=== PATIENT | female | born 1960 | race Caucasian/White ===

== ENCOUNTER → 2017-05-21 | Outpatient (CLI) | payer BC ==
[2017-05-21 19:45] LABS: Vitamin D 25 Hydroxy 41.4 ng/mL (30.0-100.0)
[2017-05-21 19:59] LABS: Rheumatoid Factor <4 IU/mL (0-15)
[2017-05-21 20:21] LABS: RNP <0.2 AI
== END | disposition home or self-care (01) ==
LOC: LABWHC1 13:12
PROVIDERS: ATTEND Dentist Oral and Maxillofacial Surgery
DX: M35.00 Sjogren syndrome, unspecified (principal)
CPT/HCPCS: 36415; 82306; 85652; 86038; 86235; 86431

== ENCOUNTER 2017-11-15 13:10 | Emergency (ER) | payer BC ==
[2017-11-15] MEDS ORDERED: DICYCLOMINE 20 MG TAB PO STA (14:40)
[2017-11-15] MEDS ORDERED: SODIUM CHLORIDE 0.9% 1,000 ML IV ONE (14:40)
[2017-11-15] MEDS ORDERED: KETOROLAC 30 MG/ML 1 ML VIAL IVP STA (14:40)
--- NOTE | 2017-11-15 14:47 | ED ---
Abdominal Pain HPI - General Chief Complaint: Abdominal Pain Stated Complaint: Abd Pain Time Seen by Provider: 11/15/17 14:20 Source: patient Mode of arrival: ambulatory Limitations: no limitations - History of Present Illness Initial Comments: 57 yoF presenting with midline abdominal pain, fever, and constipation. Patient states on Thursday she was having multiple loose mucous stools so she took Immodium. She states she developed mild middle abdominal pain and a subjective fever with a Tmax of 99. The pain has been gradually worsening and describes it now as a crampy, sharp, and stabbing middle pain that is nonradiating, not alleviated by anything, and exacerbated by movement or pressure. She states she felt constipated over the next 2 days and tried Senokot and an enema without relief. She states she is still passing gas but is experiencing tenesmus. She denies any N/V or urinary complaints. Denies history of IBD. She states she does have a history of constipation but usually it resolves with Senokot. She has never had abdominal surgery or a colonoscopy. Denies any vaginal bleeding or discharge. Denies chest pain, shortness of breath, or other anginal equivalents. - Related Data Home Medications Medication Instructions Recorded Confirmed Levothyroxine 140 mcg PO DAILY 11/15/17 11/15/17 Magnesium 600 mg PO HS 11/15/17 11/15/17 Progesterone, Micronized 150 mg PO DAILY 11/15/17 11/15/17 [Progesterone] Previous Rx's Medication Instructions Recorded Amoxicillin/Potassium Clav 1 tab PO Q12HR 10 Days #20 tab 11/15/17 [Augmentin 875-125 Tablet] HYDROcodone/APAP 5-325MG [[place] 1 tab PO Q6HR PRN 3 Days #12 tab 11/15/17 5-325] Ondansetron Odt [Zofran Odt] 4 mg PO Q12HR PRN #5 tab 11/15/17 Allergies Allergy/AdvReac Type Severity Reaction Status Date / Time No Known Allergies Allergy Verified 11/15/17 14:07 Review of Systems ROS Statement: Those systems with pertinent positive or pertinent negative responses have been documented in the HPI. Review of Systems Constitutional: Denies fever, chills Eyes: Denies change in vision, Denies pain Ears, nose, mouth, throat: Denies headaches, Denies sore throat Cardiovascular: Denies chest pain. Denies palpitations Respiratory: Denies shortness of breath, Denies cough Gastrointestinal: Positive abdominal pain. Denies nausea, vomiting. Positive constipation and diarrhea. Genitourinary: Denies hematuria, Denies infections Musculoskeletal: Denies pain, Denies swelling Integumentary: Denies rash Neurological: Denies headache, focal weakness, focal numbness Psychiatric: Denies anxiety, Denies depression Hematologic/Lymphatic: Denies easy bleeding or bruising ROS Other: All systems not noted in ROS Statement are negative. Past Medical History Past Medical History: Thyroid Disorder History of Any Multi-Drug Resistant Organisms: None Reported Past Surgical History: Uterine Ablation Past Psychological History: No Psychological Hx Reported Smoking Status: Never smoker Past Alcohol Use History: Occasional Past Drug Use History: None Reported General Exam - General Exam Comments Initial Comments: General: Awake, alert, No acute Distress HENT: Normocephalic. Atraumatic Eyes: PERRL. EOMI. No scleral icterus. No injected conjunctiva Neck: Full ROM Chest/Lungs: Clear to auscultation bilaterally. No wheezing, rhonchi, or rales Cardiac: Regular rate, rhythm. No murmurs or rubs Abdomen/GI: Generally tender, worse in LLQ and suprapubic area. No rebound, guarding, or rigidity. Musculoskeletal: Full ROM Skin: Warm, dry, intact Neurologic: A/Ox3, no weakness, no sensory deficit, no abdnormal gait, no coordination deficit Limitations: no limitations Course Vital Signs 11/15/17 11/15/17 14:04 16:27 Temperature 99.2 F Pulse Rate 88 84 Respiratory 18 18 Rate Blood Pressure 138/82 118/61 O2 Sat by Pulse 97 97 Oximetry Medical Decision Making - Medical Decision Making 57 yoF presenting with abdominal pain. On initial exam the patient is awake, alert, and in NAD. VSS. Her laboratory workup revealed a leukocytosis. Her CT showed colitis and an ileus. Patient has been tolerating PO. There were changes seen anterior to the uterus and around a fallopian tube which patient states are from previous surgery she has had. She states her pain has improved. Patient is comfortable with outpatient management and following up with her PCP this week and a GI doctor in the future. She was instructed to get a colonoscopy. She was given her first dose of antibiotics here. No further emergent workup indicated. The patient was given return to ED instructions. They were instructed to follow up with their primary care provider. Stable for discharge at this time. - Lab Data Result diagrams: 11/15/17 15:03 11/15/17 15:03 Lab Results 11/15/17 11/15/17 11/15/17 Range/Units 15:03 15:03 15:03 WBC 16.3 H (3.8-10.6) k/uL RBC 4.86 (3.80-5.40) m/uL Hgb 13.1 (11.4-16.0) gm/dL Hct 40.6 (34.0-46.0) % MCV 83.6 (80.0-100.0) fL MCH 27.0 (25.0-35.0) pg MCHC 32.3 (31.0-37.0) g/dL RDW 14.2 (11.5-15.5) % Plt Count 261 (150-450) k/uL Neutrophils % 84 % Lymphocytes % 10 % Monocytes % 4 % Eosinophils % 1 % Basophils % 0 % Neutrophils # 13.7 H (1.3-7.7) k/uL Lymphocytes # 1.7 (1.0-4.8) k/uL Monocytes # 0.7 (0-1.0) k/uL Eosinophils # 0.2 (0-0.7) k/uL Basophils # 0.0 (0-0.2) k/uL Sodium 138 (137-145) mmol/L Potassium 4.3 (3.5-5.1) mmol/L Chloride 104 (98-107) mmol/L Carbon Dioxide 25 (22-30) mmol/L Anion Gap 9 mmol/L BUN 10 (7-17) mg/dL Creatinine 0.70 (0.52-1.04) mg/dL Est GFR (CKD-EPI)AfAm >90 (>60 ml/min/1.73 sqM) Est GFR (CKD-EPI)NonAf >90 (>60 ml/min/1.73 sqM) Glucose 102 H (74-99) mg/dL Plasma Lactic Acid Preet (0.7-2.0) mmol/L Calcium 9.3 (8.4-10.2) mg/dL Total Bilirubin 0.6 (0.2-1.3) mg/dL Conjugated Bilirubin 0.0 (0.0-0.3) mg/dL Unconjugated Bilirubin 0.3 (0.0-1.1) mg/dL Delta Bilirubin 0.3 H (0.0-0.2) mg/dL AST 25 (14-36) U/L ALT 26 (9-52) U/L Alkaline Phosphatase 60 (38-126) U/L Total Protein 6.9 (6.3-8.2) g/dL Albumin 4.0 (3.5-5.0) g/dL Lipase 16 L (23-300) U/L Urine Color Yellow Urine Appearance Cloudy H (Clear) Urine pH 6.0 (5.0-8.0) Ur Specific [place] 1.013 (1.001-1.035) Urine Protein Negative (Negative) Urine Glucose (UA) Negative (Negative) Urine Ketones 2+ H (Negative) Urine Blood Trace H (Negative) Urine Nitrite Negative (Negative) Urine Bilirubin Negative (Negative) Urine Urobilinogen <2.0 (<2.0) mg/dL Ur Leukocyte Esterase Negative (Negative) Urine RBC 4 (0-5) /hpf Urine WBC 3 (0-5) /hpf Ur Squamous Epith Cells 15 H (0-4) /hpf Amorphous Sediment Occasional H (None) /hpf Urine Bacteria Occasional H (None) /hpf Hyaline Casts 1 (0-2) /lpf Urine Mucus Rare H (None) /hpf 07/15/18 Range/Units 15:03 WBC (3.8-10.6) k/uL RBC (3.80-5.40) m/uL Hgb (11.4-16.0) gm/dL Hct (34.0-46.0) % MCV (80.0-100.0) fL MCH (25.0-35.0) pg MCHC (31.0-37.0) g/dL RDW (11.5-15.5) % Plt Count (150-450) k/uL Neutrophils % % Lymphocytes % % Monocytes % % Eosinophils % % Basophils % % Neutrophils # (1.3-7.7) k/uL Lymphocytes # (1.0-4.8) k/uL Monocytes # (0-1.0) k/uL Eosinophils # (0-0.7) k/uL Basophils # (0-0.2) k/uL Sodium (137-145) mmol/L Potassium (3.5-5.1) mmol/L Chloride (98-107) mmol/L Carbon Dioxide (22-30) mmol/L Anion Gap mmol/L BUN (7-17) mg/dL Creatinine (0.52-1.04) mg/dL Est GFR (CKD-EPI)AfAm (>60 ml/min/1.73 sqM) Est GFR (CKD-EPI)NonAf (>60 ml/min/1.73 sqM) Glucose (74-99) mg/dL Plasma Lactic Acid Preet 0.8 (0.7-2.0) mmol/L Calcium (8.4-10.2) mg/dL Total Bilirubin (0.2-1.3) mg/dL Conjugated Bilirubin (0.0-0.3) mg/dL Unconjugated Bilirubin (0.0-1.1) mg/dL Delta Bilirubin (0.0-0.2) mg/dL AST (14-36) U/L ALT (9-52) U/L Alkaline Phosphatase (38-126) U/L Total Protein (6.3-8.2) g/dL Albumin (3.5-5.0) g/dL Lipase (23-300) U/L Urine Color Urine Appearance (Clear) Urine pH (5.0-8.0) Ur Specific [place] (1.001-1.035) Urine Protein (Negative) Urine Glucose (UA) (Negative) Urine Ketones (Negative) Urine Blood (Negative) Urine Nitrite (Negative) Urine Bilirubin (Negative) Urine Urobilinogen (<2.0) mg/dL Ur Leukocyte Esterase (Negative) Urine RBC (0-5) /hpf Urine WBC (0-5) /hpf Ur Squamous Epith Cells (0-4) /hpf Amorphous Sediment (None) /hpf Urine Bacteria (None) /hpf Hyaline Casts (0-2) /lpf Urine Mucus (None) /hpf Disposition Clinical Impression: Colitis, Ileus Disposition: HOME SELF-CARE Condition: Good Instructions: Colitis (ED), Abdominal Pain (ED), Ileus (ED) Prescriptions: Amoxicillin/Potassium Clav [Augmentin 875-125 Tablet] 1 tab PO Q12HR 10 Days # 20 tab HYDROcodone/APAP 5-325MG [[place] 5-325] 1 tab PO Q6HR PRN 3 Days #12 tab PRN Reason: Pain Ondansetron Odt [Zofran Odt] 4 mg PO Q12HR PRN #5 tab PRN Reason: Nausea And Vomiting Is patient prescribed a controlled substance at d/c from ED?: Yes When asked, does pt state using other controlled substances?: No If prescribed controlled substance>3 days was MAPS reviewed?: Prescribed <3 Days If opioid is for acute pain is fill amount 7 days or less?: Yes If Rx opioid, was Start Talking consent form obtained?: Yes Referrals: Myron Hanson DO [Primary Care Provider] - 1-2 days
[2017-11-15 15:24] LABS: Basophils % (A) 0 %; Eosinophils # (A) 0.2 k/uL (0-0.7); Eosinophils % (A) 1 %; HCT 40.6 % (34.0-46.0); HGB 13.1 gm/dL (11.4-16.0); Lymphocytes # (A) 1.7 k/uL (1.0-4.8); Lymphocytes % (A) 10 %; MCHC 32.3 g/dL (31.0-37.0); MCV 83.6 fL (80.0-100.0); Mean Platelet Volume 6.4; Monocytes # (A) 0.7 k/uL (0-1.0); Monocytes % (A) 4 %; Neutrophils # (A) 13.7 k/uL (1.3-7.7); Neutrophils % (A) 84 %; Platelet Count 261 k/uL (150-450); RBC 4.86 m/uL (3.80-5.40); RDW 14.2 % (11.5-15.5); WBC 16.3 k/uL (3.8-10.6)
[2017-11-15 15:25] LABS: Amorphous Sediment,Urine Occasional /hpf; Appearance,Urine Cloudy (Clear); Bacteria,Urine Occasional /hpf; Bilirubin,Urine Negative (Negative); Blood,Urine Trace (Negative); Color,Urine Yellow; Glucose,Urine (UA) Negative (Negative); Hyaline Casts,Urine 1 /lpf (0-2); Ketones,Urine 2+ (Negative); Leukocyte Esterase,Urine Negative (Negative); Mucus,Urine Rare /hpf; Nitrite,Urine Negative (Negative); Protein,Urine Negative (Negative); RBC,Urine 4 /hpf (0-5); Specific Gravity,Urine 1.013 (1.001-1.035); Squamous Epithelial Cell,Urine 15 /hpf (0-4); Urobilinogen,Urine <2.0 mg/dL (<2.0); WBC,Urine 3 /hpf (0-5)
[2017-11-15 15:26] LABS: ALT 26 U/L (9-52); AST 25 U/L (14-36); Alkaline Phosphatase 60 U/L (38-126); Anion Gap 9 mmol/L; Bilirubin, Delta 0.3 mg/dL (0.0-0.2); Bilirubin,Unconjugated 0.3 mg/dL (0.0-1.1); Blood Urea Nitrogen 10 mg/dL (7-17); Calcium 9.3 mg/dL (8.4-10.2); Carbon Dioxide 25 mmol/L (22-30); Chloride 104 mmol/L (98-107); Glucose 102 mg/dL (74-99); Lipase 16 U/L (23-300); Potassium 4.3 mmol/L (3.5-5.1); Sodium 138 mmol/L (137-145); Total Bilirubin 0.6 mg/dL (0.2-1.3); Total Protein 6.9 g/dL (6.3-8.2)
--- NOTE | 2017-11-15 16:21 | CT ---
EXAMINATION TYPE: CT abdomen pelvis w con DATE OF EXAM: 11/15/2017 COMPARISON: None HISTORY: Lower abdominal pain x3 days CT DLP: 1345.4 mGycm Automated exposure control for dose reduction was used. TECHNIQUE: Helical acquisition of images from the lung bases through the pelvis have been completed. CONTRAST: Performed without Oral Contrast and with IV Contrast, patient injected with 100 mL of Isovue 300. FINDINGS: LUNG BASES: No significant abnormality is appreciated. AORTA: No significant abnormality is appreciated. LIVER/GB: No significant abnormality is appreciated. PANCREAS: No significant abnormality is seen. SPLEEN: No significant abnormality is seen. ADRENALS: No significant abnormality is seen. KIDNEYS: No significant abnormality is seen. REPRODUCTIVE ORGANS: No there is linear increased density present anterior to the uterus which is ind eterminate, correlate for possible prior instrumentation BOWEL: There is wall thickening in the rectosigmoid colon. Suspect small bowel ileus. High dense mat erial present within the cecum and colon may be due to radiopaque medication. FREE AIR: No Free Air visible. ASCITES: Some minimal free fluid present within the pelvis.. PELVIC ADENOPATHY: None visualized. RETROPERITONEAL ADENOPATHY: No Retroperitoneal Adenopathy visible. URINARY BLADDER: No significant abnormality is seen. OSSEOUS STRUCTURES: Degenerative disc changes are present in the visualized spine, minimal anterolis thesis grade 1 L4-5. IMPRESSION: CORRELATE FOR COLITIS. LINEAR INCREASED DENSITY ANTERIOR TO THE UTERUS IS INDETERMINATE, CORRELATE FO R PRIOR INSTRUMENTATION, THERE MAY BE INTERVAL EROSION PRIOR FALLOPIAN TUBAL FOREIGN BODY PLACEMENT. SMALL AMOUNT OF FLUID PRESENT WITHIN THE PELVIS. FOLLOW-UP INDICATED.
[2017-11-15] MEDS ORDERED: HYDROcodone/APAP 5-325MG 1 EACH TAB PO STA (16:36)
[2017-11-15] MEDS ORDERED: AMOXIC-POT CLAV 875MG STARTER 2 EACH TABLET PO STA (16:37)
[2017-11-15 16:55] VITALS: BP 109/67; PULSE 87; RESP 17; TEMP 98.8
== END 2017-11-15 17:01 | disposition home or self-care (01) ==
LOC: EC 13:10
DX: K52.9 Noninfective gastroenteritis and colitis, unspecified (principal); K56.7 Ileus, unspecified; E07.9 Disorder of thyroid, unspecified; Z98.890 Other specified postprocedural states; Z79.899 Other long term (current) drug therapy
CPT/HCPCS: 36415; 80048; 80076; 83605; 83690; 85025; 81001; 74177; 99284; 96374; 96361; J1885; Q9967

== ENCOUNTER → 2018-08-31 | Outpatient (CLI) | payer BC ==
[2018-08-31 16:15] LABS: Vitamin D 25 Hydroxy 46.3 ng/mL (30.0-100.0)
[2018-08-31 16:28] LABS: Thyroid Peroxidase Antibodies 36.7 U/mL (0.0-60.0)
[2018-08-31 16:44] LABS: Albumin 4.3 g/dL (3.80-4.90); Albumin/Globulin Ratio 2.05 (1.60-3.17); Anion Gap 8.1 mmol/L (4.00-12.00); Calcium 9.6 mg/dL (8.7-10.3); Carbon Dioxide 27.9 mmol/L (21.6-31.8); Globulin 2.1 g/dL (1.6-3.3); Potassium 4.6 mmol/L (3.5-5.5); Total Bilirubin 0.3 mg/dL (0.2-1.2); Total Protein 6.4 g/dL (6.2-8.2)
[2018-08-31 17:06] LABS: Insulin Level 6.1 mIU/mL (3.0-25.0)
[2018-08-31 17:35] LABS: Progesterone 0.3 ng/mL
[2018-08-31 19:20] LABS: Hemoglobin A1C 5.7 % (4.0-6.0)
== END | disposition home or self-care (01) ==
LOC: LABWHC1 10:29
PROVIDERS: ATTEND Specialist
DX: E06.3 Autoimmune thyroiditis (principal); D51.9 Vitamin B12 deficiency anemia, unspecified; R68.82 Decreased libido; R79.82 Elevated C-reactive protein (CRP); R79.9 Abnormal finding of blood chemistry, unspecified; R53.83 Other fatigue; E23.0 Hypopituitarism; E34.9 Endocrine disorder, unspecified; E27.40 Unspecified adrenocortical insufficiency; E03.9 Hypothyroidism, unspecified; M35.9 Systemic involvement of connective tissue, unspecified; F51.02 Adjustment insomnia; E88.81 Metabolic syndrome and other insulin resistance; M25.50 Pain in unspecified joint; M79.609 Pain in unspecified limb; R41.3 Other amnesia; K90.49 Malabsorption due to intolerance, not elsewhere classified; E83.9 Disorder of mineral metabolism, unspecified; E63.9 Nutritional deficiency, unspecified; E07.9 Disorder of thyroid, unspecified; R63.5 Abnormal weight gain
CPT/HCPCS: 36415; 80053; 82306; 82670; 82728; 83036; 83090; 83525; 83690; 84144; 84439; 84443; 84481; 84482; 86141; 86376; 86800

== ENCOUNTER → 2018-09-21 | Outpatient (CLI) | payer BC ==
--- NOTE | 2018-09-22 11:01 | MM ---
Reason for exam: screening (asymptomatic). History: Patient is postmenopausal. Physical Findings: A clinical breast exam by your physician is recommended on an annual basis and results should be correlated with mammographic findings. MG Screening Mammo w CAD Bilateral CC and MLO view(s) were taken. No prior studies available for comparison. Finding: There are suspicious varied sized masses in the left breast seen on CC view. ASSESSMENT: Incomplete: need additional imaging evaluation, BI-RAD 0 RECOMMENDATION: Special view mammogram of the left breast. If lesion persists on supplemental views, image directed ultrasound is recommended. [facility] will attempt to contact patient to return for supplemental views and ultrasound if indicated.
== END | disposition home or self-care (01) ==
LOC: RADMAMWWP 13:11
PROVIDERS: ATTEND Specialist
DX: Z12.31 Encounter for screening mammogram for malignant neoplasm of breast (principal)
CPT/HCPCS: 77067

== ENCOUNTER → 2018-10-11 | Outpatient (CLI) | payer BC ==
--- NOTE | 2018-10-12 08:32 | USB ---
Reason for exam: additional evaluation requested from abnormal screening. History: Patient is postmenopausal. Physical Findings: Nurse did not find any significant physical abnormalities on exam. US Breast Workup Limited LT Left limited breast ultrasound including focal area of concern, retroareolar and axilla demonstrates a 0.8 x 0.4 x 0.4cm cystic cluster at 2 o'clock, corresponds with one mammogram mass. Spot views will be performed for the remaining 3 masses. These results were verbally communicated with the patient and result sheet given to the patient on 10/11/18. ASSESSMENT: Incomplete: need additional imaging evaluation, BI-RAD 0 RECOMMENDATION: Special view mammogram of the left breast.
--- NOTE | 2018-10-12 08:35 | MM ---
Reason for exam: additional evaluation requested from abnormal screening. Last mammogram was performed 1 month ago. History: Patient is postmenopausal. Taking estrogen beginning at age 56. Taking progesterone beginning at age 56. MG Work Up Mamm w CAD LT Spot compression CC, spot compression MLO, and LM view(s) were taken of the left breast. Prior study comparison: September 21, 2018, bilateral MG screening mammo w CAD. The breast tissue is heterogeneously dense. This may lower the sensitivity of mammography. There is a persistent 6mm upper outer quadrant round circumscribed mass 7.4cm from nipple and 5mm persistent upper outer quadrant mass 5.4cm from nipple that is smoothly marginated as well. The more posterior depth upper outer quadrant mass resolves on additional views. These results were verbally communicated with the patient and result sheet given to the patient on 10/11/18. ASSESSMENT: Probably benign, BI-RAD 3 RECOMMENDATION: Follow-up diagnostic mammogram of the left breast in 6 months.
== END ==
LOC: RADMAMWWP 13:25
PROVIDERS: ATTEND Specialist
DX: R92.8 Other abnormal and inconclusive findings on diagnostic imaging of breast (principal)
CPT/HCPCS: 77065

== ENCOUNTER → 2019-02-28 | Outpatient (CLI) | payer BC ==
[2019-02-28 10:40] LABS: Basophils % (A) 1 %; Eosinophils # (A) 0.1 k/uL (0-0.7); Eosinophils % (A) 2 %; HCT 43.4 % (34.0-46.0); HGB 13.9 gm/dL (11.4-16.0); Lymphocytes # (A) 2.2 k/uL (1.0-4.8); Lymphocytes % (A) 33 %; MCH 27.5 pg (25.0-35.0); MCHC 31.9 g/dL (31.0-37.0); MCV 86.2 fL (80.0-100.0); Mean Platelet Volume 5.7; Monocytes # (A) 0.3 k/uL (0-1.0); Monocytes % (A) 4 %; Neutrophils # (A) 3.9 k/uL (1.3-7.7); Neutrophils % (A) 60 %; Platelet Count 248 k/uL (150-450); RBC 5.04 m/uL (3.80-5.40); RDW 13.5 % (11.5-15.5); WBC 6.6 k/uL (3.8-10.6)
[2019-02-28 16:52] LABS: Progesterone 2.7 ng/mL
[2019-02-28 16:53] LABS: DHEA Sulfate 171.9 ug/dL (26.0-430.0)
[2019-02-28 16:57] LABS: Insulin Level 11.1 mIU/mL (3.0-25.0)
[2019-02-28 17:01] LABS: Estradiol 43.6 pg/mL
[2019-02-28 17:12] LABS: Cholesterol 194 mg/dL (0-200); Glucose 103 mg/dL (70-110); LDL Cholesterol,Calculated 98.2 mg/dL (0.0-131.0)
[2019-02-28 18:01] LABS: Hemoglobin A1C 5.8 % (4.0-6.0)
== END | disposition home or self-care (01) ==
LOC: LABWHC1 09:46
PROVIDERS: ATTEND Specialist
DX: Z13.21 Encounter for screening for nutritional disorder (principal); E03.9 Hypothyroidism, unspecified; D51.9 Vitamin B12 deficiency anemia, unspecified; R68.82 Decreased libido; R79.82 Elevated C-reactive protein (CRP); E53.9 Vitamin B deficiency, unspecified; R53.83 Other fatigue; E83.9 Disorder of mineral metabolism, unspecified; E88.81 Metabolic syndrome and other insulin resistance; N95.9 Unspecified menopausal and perimenopausal disorder; R41.3 Other amnesia; K90.49 Malabsorption due to intolerance, not elsewhere classified; M79.609 Pain in unspecified limb; M25.50 Pain in unspecified joint; F51.02 Adjustment insomnia; M35.9 Systemic involvement of connective tissue, unspecified; R63.5 Abnormal weight gain; E07.9 Disorder of thyroid, unspecified; E06.3 Autoimmune thyroiditis; E27.40 Unspecified adrenocortical insufficiency; E23.0 Hypopituitarism; Z79.890 Hormone replacement therapy
CPT/HCPCS: 36415; 80061; 82306; 82627; 82670; 82947; 83036; 83090; 83525; 84144; 84439; 84443; 84481; 84482; 85025; 86141

== ENCOUNTER → 2019-03-02 | Outpatient (CLI) | payer BC | END | disposition home or self-care (01) | LOC: LABWHC1 08:34 | PROVIDERS: ATTEND Specialist | DX: E23.0 Hypopituitarism (principal); E06.3 Autoimmune thyroiditis; D51.9 Vitamin B12 deficiency anemia, unspecified; R68.82 Decreased libido; R79.82 Elevated C-reactive protein (CRP); E53.9 Vitamin B deficiency, unspecified; R53.83 Other fatigue; E27.40 Unspecified adrenocortical insufficiency; E03.9 Hypothyroidism, unspecified; M35.9 Systemic involvement of connective tissue, unspecified; F51.02 Adjustment insomnia; E88.81 Metabolic syndrome and other insulin resistance; M79.609 Pain in unspecified limb; K90.49 Malabsorption due to intolerance, not elsewhere classified; R41.3 Other amnesia; N95.9 Unspecified menopausal and perimenopausal disorder; M25.50 Pain in unspecified joint; E83.9 Disorder of mineral metabolism, unspecified; E63.9 Nutritional deficiency, unspecified; E07.9 Disorder of thyroid, unspecified; Z13.21 Encounter for screening for nutritional disorder; R63.5 Abnormal weight gain; Z79.890 Hormone replacement therapy | CPT/HCPCS: 36415; 82533 ==

== ENCOUNTER → 2019-06-03 | Outpatient (CLI) | payer BC ==
--- NOTE | 2019-06-03 10:40 | MM ---
Reason for exam: clinical finding. Last mammogram was performed 8 months ago. History: Patient is postmenopausal. Took hormonal contraceptives beginning at age 21. Taking estrogen beginning at age 56. Taking progesterone beginning at age 56. Indicated problem(s): lump or thickening in the left breast. Physical Findings: Nurse did not find any significant physical abnormalities on exam. MG 3D Diag Mammo W/Cad LT CC and MLO view(s) were taken of the left breast. Prior study comparison: October 11, 2018, left breast MG work up mamm w CAD LT. September 21, 2018, bilateral MG screening mammo w CAD. The breast tissue is heterogeneously dense. This may lower the sensitivity of mammography. Left upper outer quadrant posterior depth mass is stable and correlates with sonographic cystic cluster. The second upper outer quadrant middle depth focal asymmetry is stable. The third previously seen mass appears as fibroglandular tissue on 3D. These results were verbally communicated with the patient and result sheet given to the patient on 06/03/19. ASSESSMENT: Probably benign, BI-RAD 3 RECOMMENDATION: Follow-up diagnostic mammogram of both breasts in 6 months.
== END | disposition home or self-care (01) ==
LOC: RADMAMWWP 09:38
PROVIDERS: ATTEND Specialist
DX: N63.20 Unspecified lump in the left breast, unspecified quadrant (principal)
CPT/HCPCS: 77061; 77065

== ENCOUNTER → 2020-01-24 | Outpatient (CLI) | payer BC ==
[2020-01-24 12:30] LABS: Basophils % (A) 1 %; Eosinophils # (A) 0.3 k/uL (0-0.7); Eosinophils % (A) 5 %; HCT 42.2 % (34.0-46.0); Lymphocytes # (A) 1.8 k/uL (1.0-4.8); Lymphocytes % (A) 28 %; MCH 25.8 pg (25.0-35.0); MCHC 30.7 g/dL (31.0-37.0); MCV 83.9 fL (80.0-100.0); Mean Platelet Volume 6.8; Monocytes # (A) 0.3 k/uL (0-1.0); Monocytes % (A) 5 %; Neutrophils % (A) 61 %; Platelet Count 244 k/uL (150-450); RBC 5.03 m/uL (3.80-5.40); RDW 13.8 % (11.5-15.5); WBC 6.6 k/uL (3.8-10.6)
[2020-01-24 19:05] LABS: Hemoglobin A1C 6.1 % (4.0-6.0)
[2020-01-24 20:08] LABS: Insulin Level 10.3 mIU/mL (3.0-25.0)
[2020-01-24 20:11] LABS: Estradiol 30.1 pg/mL; Ferritin 48.5 ng/mL (10.0-291.0); Progesterone 0.5 ng/mL
[2020-01-24 20:16] LABS: African American GFR (CKD) 81.1 (60.0-200.0); Albumin 4.1 g/dL (3.80-4.90); Albumin/Globulin Ratio 1.78 (1.60-3.17); BUN/Creat Ratio 18.89 Ratio (12.00-20.00); C Reactive Protein, High Sens 10.7 mg/L (0.000-3.000); Chol/HDL Ratio 2.39; Globulin 2.3 g/dL (1.6-3.3); LDL Cholesterol,Calculated 83.8 mg/dL (0.0-131.0); Potassium 4.2 mmol/L (3.5-5.5); T4, Free (Free Thyroxine) 0.7 ng/dL (0.80-1.80); Total Bilirubin 0.4 mg/dL (0.3-1.2); Total Protein 6.4 g/dL (6.2-8.2); VLDL Calculation 15.2 mg/dL (5.00-40.00)
== END | disposition home or self-care (01) ==
LOC: LABWHC1 11:36
PROVIDERS: ATTEND Specialist
DX: D51.9 Vitamin B12 deficiency anemia, unspecified (principal); E06.3 Autoimmune thyroiditis; K59.00 Constipation, unspecified; E23.0 Hypopituitarism; E27.40 Unspecified adrenocortical insufficiency; E03.9 Hypothyroidism, unspecified; M35.9 Systemic involvement of connective tissue, unspecified; E88.81 Metabolic syndrome and other insulin resistance; E83.9 Disorder of mineral metabolism, unspecified; E63.9 Nutritional deficiency, unspecified; E07.9 Disorder of thyroid, unspecified; R68.82 Decreased libido; R79.82 Elevated C-reactive protein (CRP); R53.83 Other fatigue; Z79.890 Hormone replacement therapy
CPT/HCPCS: 36415; 80053; 80061; 82306; 82670; 82728; 83036; 83090; 83525; 84144; 84439; 84443; 84481; 85025; 86141

== ENCOUNTER → 2020-06-27 | Outpatient (CLI) | payer BC ==
[2020-06-27 19:18] LABS: Basophils # (A) 0.03 X 10*3/uL (0.00-0.10); Basophils % (A) 0.4 %; Eosinophils # (A) 0.15 X 10*3/uL (0.04-0.35); Eosinophils % (A) 2.1 %; HCT 42.3 % (37.2-46.3); HGB 12.7 g/dL (12.0-15.0); Lymphocytes # (A) 2.18 X 10*3/uL (0.90-5.00); Lymphocytes % (A) 30.5 %; MCH 25.9 pg (27.0-32.0); MCV 86.2 fL (80.0-97.0); Mean Platelet Volume 10.2 fL (9.5-12.2); Monocytes # (A) 0.44 X 10*3/uL (0.20-1.00); Monocytes % (A) 6.2 %; Neutrophils # (A) 4.32 X 10*3/uL (1.80-7.70); Neutrophils % (A) 60.4 %; Platelet Count 278 X 10*3/uL (140-440); RBC 4.91 X 10*6/uL (4.10-5.20); RDW 15.1 % (11.5-14.5); WBC 7.15 X 10*3/uL (4.50-10.00)
[2020-06-27 21:05] LABS: C Reactive Protein, High Sens 18.72 mg/L (0.000-3.000)
[2020-06-27 21:11] LABS: Insulin Level 7.4 mIU/mL (3.0-25.0)
[2020-06-27 21:13] LABS: Estradiol 30.5 pg/mL; T4, Free (Free Thyroxine) 0.9 ng/dL (0.80-1.80)
[2020-06-27 21:36] LABS: Progesterone 0.4 ng/mL
[2020-06-27 21:53] LABS: Hemoglobin A1C 5.9 % (4.0-6.0)
== END | disposition home or self-care (01) ==
LOC: LABWHC1 11:45
PROVIDERS: ATTEND Specialist
DX: E06.3 Autoimmune thyroiditis (principal); D51.9 Vitamin B12 deficiency anemia, unspecified; K59.00 Constipation, unspecified; E23.0 Hypopituitarism; E27.40 Unspecified adrenocortical insufficiency; E03.9 Hypothyroidism, unspecified; M35.9 Systemic involvement of connective tissue, unspecified; F51.02 Adjustment insomnia; E88.81 Metabolic syndrome and other insulin resistance; M25.50 Pain in unspecified joint; M79.609 Pain in unspecified limb; N95.9 Unspecified menopausal and perimenopausal disorder; E63.9 Nutritional deficiency, unspecified; E07.9 Disorder of thyroid, unspecified; E55.9 Vitamin D deficiency, unspecified; R53.83 Other fatigue; R63.5 Abnormal weight gain; R68.82 Decreased libido; R79.82 Elevated C-reactive protein (CRP); R79.9 Abnormal finding of blood chemistry, unspecified; R41.3 Other amnesia; Z79.890 Hormone replacement therapy
CPT/HCPCS: 36415; 82040; 82306; 82670; 82947; 83036; 83090; 83525; 84144; 84270; 84403; 84439; 84443; 84481; 85025; 86141

== ENCOUNTER → 2021-01-08 | Outpatient (CLI) | payer BC ==
[2021-01-08 23:30] LABS: Hemoglobin A1C 5.8 % (4.0-6.0)
[2021-01-09 00:57] LABS: DHEA Sulfate 199.1 ug/dL (26.0-430.0); Progesterone 3.6 ng/mL
[2021-01-09 00:59] LABS: C Reactive Protein 1.5 mg/dL (0.0-0.8); Chol/HDL Ratio 2.35; Cholesterol 167 mg/dL (0-200); Glucose 88 mg/dL (70-110); Insulin Level 7.4 mIU/mL (3.0-25.0); LDL Cholesterol,Calculated 80.2 mg/dL (0.0-131.0)
[2021-01-09 01:08] LABS: Estradiol 29.8 pg/mL; Ferritin 45.6 ng/mL (10.0-291.0)
== END | disposition home or self-care (01) ==
LOC: LABWHC1 11:36
PROVIDERS: ATTEND Specialist
DX: E06.3 Autoimmune thyroiditis (principal); K59.00 Constipation, unspecified; R68.82 Decreased libido; E72.11 Homocystinuria; R53.83 Other fatigue; E63.9 Nutritional deficiency, unspecified; N95.1 Menopausal and female climacteric states; R41.9 Unspecified symptoms and signs involving cognitive functions and awareness; M79.609 Pain in unspecified limb; F51.04 Psychophysiologic insomnia; R73.01 Impaired fasting glucose; D89.9 Disorder involving the immune mechanism, unspecified; E03.9 Hypothyroidism, unspecified; E27.40 Unspecified adrenocortical insufficiency; E07.9 Disorder of thyroid, unspecified; E55.9 Vitamin D deficiency, unspecified; R63.5 Abnormal weight gain
CPT/HCPCS: 36415; 80061; 82040; 82533; 82627; 82642; 82670; 82728; 82947; 83036; 83090; 83525; 84144; 84270; 84403; 84439; 84443; 84481; 86140

== ENCOUNTER → 2021-03-22 | Outpatient (CLI) | payer BC ==
--- NOTE | 2021-03-25 14:06 | MM ---
Reason for exam: additional evaluation requested from prior study. Last mammogram was performed 1 year and 10 months ago. History: Patient is postmenopausal. Family history of breast cancer in paternal aunt. Took hormonal contraceptives beginning at age 21. Taking estrogen beginning at age 56. Taking progesterone beginning at age 56. Physical Findings: Nurse did not find any significant physical abnormalities on exam. MG 3D Diag Mammo W/Cad RENA Bilateral CC and MLO view(s) were taken. LM view(s) were taken of the left breast. Prior study comparison: June 03, 2019, left breast MG 3d diag mammo w/cad LT. October 11, 2018, left breast MG work up mamm w CAD LT. There are scattered fibroglandular densities. Left nodularity was present previously but is minimally larger. These results were verbally communicated with the patient and result sheet given to the patient on 03/22/21. ASSESSMENT: Incomplete: need additional imaging evaluation, BI-RAD 0 RECOMMENDATION: Ultrasound of the left breast.
--- NOTE | 2021-03-25 14:08 | USB ---
Reason for exam: additional evaluation requested from abnormal screening. History: Patient is postmenopausal. Family history of breast cancer in paternal aunt. Took hormonal contraceptives beginning at age 21. Taking estrogen beginning at age 56. Taking progesterone beginning at age 56. US Breast LT Left complete breast ultrasound includes all four quadrants, the retroareolar region and axilla. Finding demonstrates three benign, cystic lesions measuring 0.7 x 0.5 x 0.7cm at 1 o'clock, 0.9 x 0.6 x 0.6cm at 2 o'clock and 0.6 x 0.3 x 0.5cm at 6 o'clock. These results were verbally communicated with the patient and result sheet given to the patient on 03/22/21. ASSESSMENT: Probably benign, BI-RAD 3 RECOMMENDATION: Follow-up diagnostic mammogram of the left breast in 6 months. Manage on a clinical basis with regard to left breast pain.
== END | disposition home or self-care (01) ==
LOC: RADMAMWWP 11:01
PROVIDERS: ATTEND Specialist
DX: R92.8 Other abnormal and inconclusive findings on diagnostic imaging of breast (principal)
CPT/HCPCS: 77062; 77066

== ENCOUNTER → 2021-07-26 | Outpatient (CLI) | payer BC ==
[2021-07-26 14:10] LABS: Basophils # (A) 0.03 X 10*3/uL (0.00-0.10); Basophils % (A) 0.4 %; Eosinophils # (A) 0.16 X 10*3/uL (0.04-0.35); Eosinophils % (A) 1.9 %; HGB 13.7 g/dL (12.0-15.0); Immature Grans, Automated 0.7 %; Lymphocytes # (A) 2.26 X 10*3/uL (0.90-5.00); Lymphocytes % (A) 27.3 %; MCH 26.2 pg (27.0-32.0); MCHC 31.1 g/dL (32.0-37.0); MCV 84.3 fL (80.0-97.0); Mean Platelet Volume 9.5 fL (9.5-12.2); Monocytes # (A) 0.49 X 10*3/uL (0.20-1.00); Monocytes % (A) 5.9 %; NRBC Per 100 WBC 0 /100 WBCS (0.0-0.0); Neutrophils # (A) 5.29 X 10*3/uL (1.80-7.70); Neutrophils % (A) 63.8 %; Platelet Count 316 X 10*3/uL (140-440); RBC 5.22 X 10*6/uL (4.10-5.20); RDW 14.5 % (11.5-14.5); WBC 8.29 X 10*3/uL (4.50-10.00)
[2021-07-26 15:00] LABS: African American GFR (CKD) 70.4 (60.0-200.0); Albumin 4.3 g/dL (3.8-4.9); Albumin/Globulin Ratio 1.54 (1.60-3.17); Anion Gap 12.1 mmol/L (10.00-18.00); BUN/Creat Ratio 21.1 Ratio (12.00-20.00); Blood Urea Nitrogen 21.1 mg/dL (9.0-27.0); C Reactive Protein, High Sens 14.3 mg/L (0.000-3.000); Calcium 9.6 mg/dL (8.7-10.3); Carbon Dioxide 23.9 mmol/L (20.0-27.5); Globulin 2.8 g/dL (1.6-3.3); Non-African American GFR(CKD) 60.8 (60.0-200.0); Potassium 4.6 mmol/L (3.5-5.5); T4, Free (Free Thyroxine) 0.61 ng/dL (0.800-1.800); Total Bilirubin 0.3 mg/dL (0.30-1.20); Total Protein 7.1 g/dL (6.2-8.2)
[2021-07-26 16:18] LABS: Progesterone 1.9 ng/mL
[2021-07-26 16:23] LABS: Estradiol 45.5 pg/mL
[2021-07-26 20:47] LABS: Insulin Level 12.1 mIU/mL (3.0-25.0)
== END | disposition home or self-care (01) ==
LOC: LABWHC1 09:22
PROVIDERS: ATTEND Specialist
DX: E06.3 Autoimmune thyroiditis (principal); R68.82 Decreased libido; E72.11 Homocystinuria; R53.83 Other fatigue; E63.9 Nutritional deficiency, unspecified; E88.81 Metabolic syndrome and other insulin resistance; N95.1 Menopausal and female climacteric states; R41.9 Unspecified symptoms and signs involving cognitive functions and awareness; K90.49 Malabsorption due to intolerance, not elsewhere classified; M25.50 Pain in unspecified joint; M79.609 Pain in unspecified limb; F51.04 Psychophysiologic insomnia; E03.9 Hypothyroidism, unspecified; D89.9 Disorder involving the immune mechanism, unspecified; E27.40 Unspecified adrenocortical insufficiency; E07.9 Disorder of thyroid, unspecified; E55.9 Vitamin D deficiency, unspecified; R63.5 Abnormal weight gain
CPT/HCPCS: 36415; 80053; 82306; 82670; 83036; 83090; 83525; 83735; 84144; 84439; 84443; 84481; 85025; 86141

== ENCOUNTER → 2022-07-25 | Outpatient (CLI) | payer BC ==
[2022-07-25 18:44] LABS: Basophils # (A) 0.03 X 10*3/uL (0.00-0.10); Basophils % (A) 0.4 %; Eosinophils # (A) 0.16 X 10*3/uL (0.04-0.35); HCT 44.3 % (37.2-46.3); HGB 13.5 g/dL (12.0-15.0); Immature Grans, Automated 0.5 %; Lymphocytes # (A) 2.43 X 10*3/uL (0.90-5.00); MCH 26.7 pg (27.0-32.0); MCHC 30.5 g/dL (32.0-37.0); MCV 87.5 fL (80.0-97.0); Mean Platelet Volume 9.9 fL (9.5-12.2); Monocytes # (A) 0.46 X 10*3/uL (0.20-1.00); Monocytes % (A) 5.9 %; NRBC Per 100 WBC 0 /100 WBCS (0.0-0.0); Neutrophils # (A) 4.71 X 10*3/uL (1.80-7.70); Neutrophils % (A) 60.2 %; Platelet Count 280 X 10*3/uL (140-440); RBC 5.06 X 10*6/uL (4.10-5.20); RDW 14.9 % (11.5-14.5); WBC 7.83 X 10*3/uL (4.50-10.00)
[2022-07-25 19:07] LABS: Insulin Level 8.2 mIU/mL (3.0-25.0)
[2022-07-25 19:30] LABS: Homocysteine 9.24 umol/L (4.00-14.00)
[2022-07-25 19:34] LABS: Chol/HDL Ratio 2.66 Ratio; Ferritin 67.6 ng/mL (10.0-291.0); Glucose 103 mg/dL (70-110); LDL Cholesterol,Calculated 111.5 mg/dL (0.0-131.0); VLDL Calculation 12.22 mg/dL (5.00-40.00)
[2022-07-25 19:46] LABS: Estradiol 37.8 pg/mL
== END | disposition home or self-care (01) ==
LOC: LABWHC1 08:24
PROVIDERS: ATTEND Family Medicine
DX: M25.50 Pain in unspecified joint (principal); E06.3 Autoimmune thyroiditis; E72.11 Homocystinuria; E55.9 Vitamin D deficiency, unspecified; E27.40 Unspecified adrenocortical insufficiency; E03.9 Hypothyroidism, unspecified; E88.1 Lipodystrophy, not elsewhere classified; E63.9 Nutritional deficiency, unspecified; D89.9 Disorder involving the immune mechanism, unspecified; F51.04 Psychophysiologic insomnia; M79.609 Pain in unspecified limb; N95.1 Menopausal and female climacteric states; K90.49 Malabsorption due to intolerance, not elsewhere classified; R68.82 Decreased libido; R41.9 Unspecified symptoms and signs involving cognitive functions and awareness; R53.83 Other fatigue; R63.5 Abnormal weight gain; R73.01 Impaired fasting glucose; E07.9 Disorder of thyroid, unspecified
CPT/HCPCS: 36415; 80061; 82306; 82670; 82728; 82947; 83036; 83090; 83525; 84144; 84439; 84443; 84481; 84482; 85025; 86141

== ENCOUNTER → 2022-08-01 | Outpatient (CLI) | payer BC ==
--- NOTE | 2022-08-01 09:43 | MM ---
Reason for Exam: Additional evaluation requested from prior study. Last mammogram was performed 1 year(s) and 4 month(s) ago. Patient History: Menarche at age 12. First Full-Term at age 22. Postmenopausal. Patient has history of breast feeding. Currently using Estrogen, starting at age 56. Currently using Progesterone, starting at age 56. Hormonal Contraceptives, from age 21 until age 21. Paternal aunt had breast cancer at or over age 50. Risk Values: Cora 5 year model risk: 1.4%. NCI Lifetime model risk: 6.2%. Prior Study Comparison: 09/21/2018 Bilateral Screening Mammogram, [facility]. 10/11/2018 Left Diagnostic Mammogram, [facility]. 06/03/2019 Left Diagnostic Mammogram, [facility]. 03/22/2021 Bilateral Diagnostic Mammogram, [facility]. Tissue Density: The breast tissue is heterogeneously dense. This may lower the sensitivity of mammography. Findings: Analyzed By CAD. No evidence for mass or distortion. No suspicious calcifications. Overall Assessment: Benign, BI-RAD 2 Management: Screening Mammogram of both breasts in 1 year. A clinical breast exam by your physician is recommended on an annual basis and results should be correlated with mammographic findings. This exam should not preclude additional follow-up of suspicious palpable abnormalities. Results were given to the patient verbally at the time of exam. Electronically signed and approved by: Juan Meza M.D. Radiologis
== END | disposition home or self-care (01) ==
LOC: RADMAMWWP 08:55
PROVIDERS: ATTEND Physician Assistant
DX: N60.12 Diffuse cystic mastopathy of left breast (principal); Z78.0 Asymptomatic menopausal state; Z80.3 Family history of malignant neoplasm of breast
CPT/HCPCS: 77062; 77066

== ENCOUNTER → 2023-05-12 | Outpatient (CLI) | payer BC ==
[2023-05-12 10:49] LABS: Basophils # (A) 0.03 X 10*3/uL (0.00-0.10); Basophils % (A) 0.4 %; Eosinophils # (A) 0.17 X 10*3/uL (0.04-0.35); Eosinophils % (A) 2.1 %; HGB 13.2 g/dL (12.0-15.0); Lymphocytes # (A) 2.76 X 10*3/uL (0.90-5.00); Lymphocytes % (A) 33.5 %; MCH 27.2 pg (27.0-32.0); MCHC 31.4 g/dL (32.0-37.0); MCV 86.6 FL (80.0-97.0); Mean Platelet Volume 9.4 FL (9.5-12.2); Monocytes # (A) 0.51 X 10*3/uL (0.20-1.00); Monocytes % (A) 6.2 %; NRBC Per 100 WBC 0 X 10*3/uL (0.00-0.01); Neutrophils # (A) 4.73 X 10*3/uL (1.80-7.70); Neutrophils % (A) 57.3 %; Platelet Count 269 X 10*3/uL (140-440); RBC 4.85 X 10*6/uL (4.10-5.20); RDW 15.7 % (11.5-14.5); WBC 8.24 X 10*3/uL (4.50-10.00)
[2023-05-12 11:16] LABS: ALT 17 U/L (8-44); AST 17 U/L (13-35); Albumin 3.9 g/dL (3.8-4.9); Alkaline Phosphatase 70 U/L (41-126); Calcium 9.2 mg/dL (8.7-10.3); Carbon Dioxide 25.4 mmol/L (21.6-31.8); Chloride 106 mmol/L (96-109); Estradiol <20.0 pg/mL; Globulin 2.6 g/dL (1.6-3.3); Glucose 112 mg/dL (70-110); Potassium 4.2 mmol/L (3.5-5.5); Sodium 142 mmol/L (135-145); Total Bilirubin <0.2 mg/dL (0.3-1.2); Total Protein 6.5 g/dL (6.2-8.2)
[2023-05-12 11:28] LABS: Homocysteine 10.5 UMOL/L (4.00-14.00)
[2023-05-12 11:49] LABS: Progesterone 0.4 ng/mL
== END | disposition home or self-care (01) ==
LOC: LABWHC1 07:11
PROVIDERS: ATTEND Physician Assistant
DX: E06.3 Autoimmune thyroiditis (principal); E72.11 Homocystinuria; E27.40 Unspecified adrenocortical insufficiency; E03.9 Hypothyroidism, unspecified; D89.9 Disorder involving the immune mechanism, unspecified; M25.50 Pain in unspecified joint; M79.609 Pain in unspecified limb; K90.9 Intestinal malabsorption, unspecified; N95.9 Unspecified menopausal and perimenopausal disorder; E63.9 Nutritional deficiency, unspecified; E07.9 Disorder of thyroid, unspecified; E55.9 Vitamin D deficiency, unspecified; R53.83 Other fatigue; R41.2 Retrograde amnesia; R68.82 Decreased libido; R63.5 Abnormal weight gain
CPT/HCPCS: 36415; 80053; 82533; 82627; 82670; 83036; 83090; 83525; 84144; 84402; 84403; 84439; 84443; 84481; 84482; 85025; 86140

== ENCOUNTER → 2024-09-05 | Outpatient (CLI) | payer BC ==
[2024-09-05 10:20] LABS: Basophils # (A) 0.05 X 10*3/uL (0.00-0.10); Basophils % (A) 0.5 %; Eosinophils # (A) 0.13 X 10*3/uL (0.04-0.35); Eosinophils % (A) 1.3 %; HCT 45.5 % (37.2-46.3); HGB 14.3 g/dL (12.0-15.0); Lymphocytes # (A) 4.36 X 10*3/uL (0.90-5.00); Lymphocytes % (A) 42.4 %; MCH 27.5 pg (27.0-32.0); MCHC 31.4 g/dL (32.0-37.0); MCV 87.5 FL (80.0-97.0); Mean Platelet Volume 9.6 FL (9.5-12.2); Monocytes # (A) 0.56 X 10*3/uL (0.20-1.00); Monocytes % (A) 5.4 %; NRBC Per 100 WBC 0 X 10*3/uL (0.00-0.01); Neutrophils # (A) 5.04 X 10*3/uL (1.80-7.70); Platelet Count 329 X 10*3/uL (140-440); RDW 14.1 % (11.5-14.5); WBC 10.28 X 10*3/uL (4.50-10.00)
[2024-09-05 11:02] LABS: Homocysteine 12.5 UMOL/L (4.00-14.00)
[2024-09-05 11:03] LABS: % Iron Saturation 19.91 (12.00-45.00); ALT 20 U/L (8-44); AST 14 U/L (13-35); Albumin 3.9 g/dL (3.8-4.9); Albumin/Globulin Ratio 1.56 Ratio (1.60-3.17); Alkaline Phosphatase 80 U/L (41-126); BUN/Creat Ratio 17.45 Ratio (12.00-20.00); Blood Urea Nitrogen 19.2 mg/dL (9.0-27.0); Calcium 9.5 mg/dL (8.7-10.3); Carbon Dioxide 26.4 mmol/L (21.6-31.8); Chloride 103 mmol/L (96-109); Globulin 2.5 g/dL (1.6-3.3); Glucose 98 mg/dL (70-110); Iron 46 UG/DL (50-170); Potassium 4.5 mmol/L (3.5-5.5); Sodium 141 mmol/L (135-145); T4, Free (Free Thyroxine) 1.13 ng/dL (0.80-1.80); Total Bilirubin 0.3 mg/dL (0.3-1.2); Total Iron Binding Capacity 231 UG/DL (228-460); Total Protein 6.4 g/dL (6.2-8.2)
[2024-09-05 11:09] LABS: Estradiol <20.0 pg/mL
[2024-09-05 12:02] LABS: Progesterone 0.4 ng/mL
[2024-09-05 18:41] LABS: Insulin Level 10.3 mIU/mL (3.0-25.0)
== END | disposition home or self-care (01) ==
LOC: LABWHC1 07:18
PROVIDERS: ATTEND Physician Assistant
DX: E06.3 Autoimmune thyroiditis (principal); K59.00 Constipation, unspecified; E27.40 Unspecified adrenocortical insufficiency; E03.9 Hypothyroidism, unspecified; D89.9 Disorder involving the immune mechanism, unspecified; E88.819 Insulin resistance, unspecified; M25.50 Pain in unspecified joint; E72.11 Homocystinuria; M79.609 Pain in unspecified limb; N95.9 Unspecified menopausal and perimenopausal disorder; E63.9 Nutritional deficiency, unspecified; E07.9 Disorder of thyroid, unspecified; E55.9 Vitamin D deficiency, unspecified; R41.2 Retrograde amnesia; R63.5 Abnormal weight gain; R68.82 Decreased libido; R53.83 Other fatigue
CPT/HCPCS: 36415; 80053; 82533; 82626; 82670; 82728; 83036; 83090; 83525; 83540; 83550; 84144; 84439; 84443; 84481; 84482; 85025; 86140